=== PATIENT | male | born 1985 | race Caucasian/White ===

== ENCOUNTER 2023-12-06 16:40 | Observation (INO) | payer OTHER ==
[~2023-12-06] VITALS: Ht 182.9 cm; Wt 90.5 kg
[2023-12-06 17:48] LABS: BASO % 0.1 % (0.0-1.0); HEMATOCRIT 42.4 % (42.0-52.0); HEMOGLOBIN 14.6 g/dl (13.5-17.5); LYMPH # 0.7 10^3/uL (1.5-5.0); LYMPH % 3.4 % (24.0-44.0); MEAN CORPUSCULAR HEMOGLOBIN 31.8 pg (27.0-33.0); MEAN CORPUSCULAR HGB CONC 34.4 g/dl (32.0-36.5); MEAN CORPUSCULAR VOLUME 92.4 fl (80.0-96.0); MONO # 1.5 10^3/uL (0.0-0.8); MONO % 7.4 % (2.0-8.0); NEUTROPHILS # 18.2 10^3/uL (1.5-8.5); NEUTROPHILS % 88.6 % (36.0-66.0); PLATELET COUNT, AUTOMATED 348 10^3/uL (150-450); RED BLOOD COUNT 4.59 10^6/uL (4.30-6.10); WHITE BLOOD COUNT 20.6 10^3/uL (4.0-10.0)
[2023-12-06] MEDS ORDERED: MORPHINE 4 MG/ML 1ML VIAL IV ONE (18:05)
[2023-12-06] MEDS ORDERED: NS 1,000 ML IV ONE (18:05)
[2023-12-06] MEDS ORDERED: ONDANSETRON 4MG 2ML VIAL IV ONE (18:05)
[2023-12-06] MEDS ORDERED: ISOVUE-370 76% 100ML VIAL As Ordered ONE ×2 (18:07→18:22)
[2023-12-06 18:17] LABS: ALBUMIN 4.4 G/DL (3.2-5.2); BILIRUBIN,DIRECT 0.3 MG/DL (<0.4); RSV AMPLIFICATION NEGATIVE (NEGATIVE); TOTAL PROTEIN 8.1 G/DL (5.7-8.2)
[2023-12-06] MEDS ORDERED: PIPERACILLIN/TAZOBACTAM SOD 4.5 GM in D5W MINI-BAG PLUS 50 ML IV ONE (19:25)
[2023-12-06] MEDS ORDERED: ACETAMINOPHEN TAB 650MG DOSE (2X325MG) PO PRN (20:35)
[2023-12-06] MEDS ORDERED: ONDANSETRON 4MG 2ML VIAL IV PRN (20:35)
[2023-12-06] MEDS ORDERED: NORCO, ANEXSIA 5/325MG TABLET (HYDROcodone/ACETAMINOPHEN) PO PRN ×2 (20:35)
[2023-12-06] MEDS ORDERED: PROP10TA56 PO (20:53)
[2023-12-06] MEDS ORDERED: HOME MED LIST COMPLETE! XX SCH (20:55)
[2023-12-06] MEDS: SENOKOT S TAB PO SCH (21:00)
[2023-12-06] MEDS ORDERED: SUGAMMADEX SODIUM 500 MG/5 ML VIAL (BRIDION) As Ordered ONE (21:49)
[2023-12-06] MEDS ORDERED: fentaNYL 100 MCG/2 ML INJECTION As Ordered ONE ×2 (21:49→21:51)
[2023-12-06] MEDS ORDERED: ROCURONIUM BROMIDE 50MG/5ML VIAL As Ordered ONE (21:49)
[2023-12-06] MEDS ORDERED: ONDANSETRON 4MG 2ML VIAL As Ordered ONE (21:49)
[2023-12-06] MEDS ORDERED: MIDAZOLAM INJ 2MG/2ML VIAL As Ordered ONE (21:49)
[2023-12-06] MEDS ORDERED: KETOROLAC 60MG 2ML VIAL As Ordered ONE (21:49)
[2023-12-06] MEDS ORDERED: LIDOCAINE 2% 100MG/5ML SDV (FOR ANES.) As Ordered ONE (21:49)
[2023-12-06] MEDS ORDERED: propofoL 200 MG/20 ML VIAL As Ordered ONE (21:49)
[2023-12-06] MEDS: NS 1,000 ML IV SCH (22:50)
[2023-12-06 23:00] VITALS: BP 120/72; TEMP 99.1; O2SAT 94
[2023-12-07] VITALS (16 sets, daily range): BP systolic 99–133; BP diastolic 60–83; TEMP 97.3–98.6; O2SAT 92–99
[2023-12-07] MEDS: KETOROLAC 30 MG/ML 1ML VIAL IV PRN (00:12)
[2023-12-07] MEDS: PIPERACILLIN/TAZOBACTAM SOD 3.375 GM in D5W MINI-BAG PLUS 50 ML IV SCH ×2 (01:37→08:00)
[2023-12-07] MEDS: NS 1,000 ML IV SCH ×3 (03:26→23:33)
[2023-12-07 06:40] LABS: HEMATOCRIT 38.9 % (42.0-52.0); HEMOGLOBIN 13.3 g/dl (13.5-17.5); MEAN CORPUSCULAR HEMOGLOBIN 32.1 pg (27.0-33.0); MEAN CORPUSCULAR HGB CONC 34.2 g/dl (32.0-36.5); PLATELET COUNT, AUTOMATED 292 10^3/uL (150-450); RED BLOOD COUNT 4.14 10^6/uL (4.30-6.10); WHITE BLOOD COUNT 19.1 10^3/uL (4.0-10.0)
[2023-12-07 07:06] LABS: BLOOD UREA NITROGEN 11 MG/DL (9-23); CALCIUM LEVEL 8.7 MG/DL (8.5-10.1); CARBON DIOXIDE LEVEL 27 MMOL/L (20-31); CHLORIDE LEVEL 106 MMOL/L (98-107); CREATININE FOR GFR 0.93 MG/DL (0.70-1.30); GLOMERULAR FILTRATION RATE > 60.0 (>60); GLUCOSE, FASTING 141 MG/DL (60-100); POTASSIUM SERUM 4.4 MMOL/L (3.5-5.1); SODIUM LEVEL 141 MMOL/L (136-145)
[2023-12-07] MEDS: SENOKOT S TAB PO SCH ×2 (08:00→20:23)
[2023-12-07 12:11] LABS: BASO % 0.1 % (0.0-1.0); HEMATOCRIT 40.7 % (42.0-52.0); HEMOGLOBIN 13.6 g/dl (13.5-17.5); LYMPH # 1.1 10^3/uL (1.5-5.0); LYMPH % 5.5 % (24.0-44.0); MEAN CORPUSCULAR HEMOGLOBIN 31.9 pg (27.0-33.0); MEAN CORPUSCULAR HGB CONC 33.4 g/dl (32.0-36.5); MEAN CORPUSCULAR VOLUME 95.5 fl (80.0-96.0); MONO # 1.3 10^3/uL (0.0-0.8); MONO % 6.4 % (2.0-8.0); NEUTROPHILS # 17.2 10^3/uL (1.5-8.5); NEUTROPHILS % 87.5 % (36.0-66.0); PLATELET COUNT, AUTOMATED 304 10^3/uL (150-450); RED BLOOD COUNT 4.26 10^6/uL (4.30-6.10); WHITE BLOOD COUNT 19.6 10^3/uL (4.0-10.0)
[2023-12-07 12:39] LABS: BLOOD UREA NITROGEN 13 MG/DL (9-23); CALCIUM LEVEL 8.7 MG/DL (8.5-10.1); CARBON DIOXIDE LEVEL 27 MMOL/L (20-31); CHLORIDE LEVEL 106 MMOL/L (98-107); CREATININE FOR GFR 0.88 MG/DL (0.70-1.30); GLOMERULAR FILTRATION RATE > 60.0 (>60); GLUCOSE, FASTING 100 MG/DL (60-100); POTASSIUM SERUM 4.1 MMOL/L (3.5-5.1); SODIUM LEVEL 141 MMOL/L (136-145)
[2023-12-07] MEDS: metroNIDAZOLE 500 MG in IV 1 EA IV SCH (15:39)
[2023-12-07] MEDS: CIPROFLOXACIN 400 MG in IV 1 EA IV SCH (20:23)
[2023-12-08] MEDS: KETOROLAC 30 MG/ML 1ML VIAL IV PRN ×2 (00:21→08:14)
[2023-12-08] MEDS: metroNIDAZOLE 500 MG in IV 1 EA IV SCH ×2 (00:23→09:17)
[2023-12-08 02:00] VITALS: BP 111/65; TEMP 98.2; O2SAT 96
[2023-12-08] MEDS: NS 1,000 ML IV SCH (04:35)
[2023-12-08 06:00] VITALS: BP 111/73; TEMP 97.7; O2SAT 98
[2023-12-08] MEDS: CIPROFLOXACIN 400 MG in IV 1 EA IV SCH (08:04)
[2023-12-08] MEDS: SENOKOT S TAB PO SCH (08:04)
[2023-12-08 08:09] LABS: BLOOD UREA NITROGEN 14 MG/DL (9-23); CALCIUM LEVEL 7.9 MG/DL (8.5-10.1); CARBON DIOXIDE LEVEL 25 MMOL/L (20-31); CHLORIDE LEVEL 113 MMOL/L (98-107); CREATININE FOR GFR 0.88 MG/DL (0.70-1.30); GLOMERULAR FILTRATION RATE > 60.0 (>60); GLUCOSE, FASTING 90 MG/DL (60-100); SODIUM LEVEL 143 MMOL/L (136-145)
[2023-12-08 08:18] LABS: HEMATOCRIT 34.1 % (42.0-52.0); MEAN CORPUSCULAR HEMOGLOBIN 31.9 pg (27.0-33.0); MEAN CORPUSCULAR HGB CONC 33.1 g/dl (32.0-36.5); MEAN CORPUSCULAR VOLUME 96.3 fl (80.0-96.0); PLATELET COUNT, AUTOMATED 235 10^3/uL (150-450); RED BLOOD COUNT 3.54 10^6/uL (4.30-6.10); WHITE BLOOD COUNT 9.9 10^3/uL (4.0-10.0)
[2023-12-08 08:24] LABS: HEMOGLOBIN 11.3 g/dl (13.5-17.5)
[2023-12-08] MEDS ORDERED: HYDR-3715 PO (08:56)
[2023-12-08] MEDS ORDERED: AMOX875T2 PO (08:56)
== END 2023-12-08 10:50 | disposition home or self-care (01) ==
LOC: M ED 16:40 → M SDC 20:38 → M ED INP 23:00 → M MS5PR 23:22
PROVIDERS: ADMIT Surgery; ATTEND Surgery
DX: K35.890 Other acute appendicitis without perforation or gangrene (principal); F41.9 Anxiety disorder, unspecified; Z79.899 Other long term (current) drug therapy
CPT/HCPCS: 36415; 44970; 74177; 80047; 80048; 80076; 83690; 85025; 85027; 87631; 88304; 96365; 96366; 96367; 96375; 99284; J0665; J0744; J1100; J1836; J1885; J2250; J2405; J2543; J3010; Q9967